=== PATIENT | female | born 1995 | race Hispanic/Latino ===

== ENCOUNTER 2023-04-27 09:44 | Emergency (ER) | payer OTHER ==
[2023-04-27] MEDS ORDERED: Lidocaine 1% w/Epinephrine 1:100K 20 ML VIAL ONE (10:09)
[2023-04-27] MEDS ORDERED: Boostrix 0.5 ML (Tdap) VIAL (>/=7 yrs of age) ONE (10:13)
== END 2023-04-27 11:54 | disposition home or self-care (01) ==
LOC: ERS 09:44
DX: O9A.211 Injury, poisoning and certain other consequences of external causes complicating pregnancy, first trimester (principal); S05.32XA Ocular laceration without prolapse or loss of intraocular tissue, left eye, initial encounter; V49.9XXA Car occupant (driver) (passenger) injured in unspecified traffic accident, initial encounter; Y92.410 Unspecified street and highway as the place of occurrence of the external cause; Z3A.12 12 weeks gestation of pregnancy
CPT/HCPCS: 12011; 90471; 90715

== ENCOUNTER 2023-05-02 17:29 | Emergency (ER) | payer SELFPAY | END 2023-05-02 18:58 | disposition home or self-care (01) | LOC: ERS 17:29 | DX: S01.81XD Laceration without foreign body of other part of head, subsequent encounter (principal); X58.XXXD Exposure to other specified factors, subsequent encounter ==